=== PATIENT | female | born 1970 | race African-American/Black ===

== ENCOUNTER 2018-11-21 15:24 | Emergency (ER) | payer MEDICAID, OTHER ==
[~2018-11-21] VITALS: Ht 165.1 cm; Wt 80.0 kg
[~2018-11-21 15:24] MED LIST: CYCL5TAB PO; GABA300C10 PO; SERT25TA PO; ZOLP-413 PO
[2018-11-21 16:11] LABS: BASOPHILS # (AUTO) 0.06 x10^3/uL (0-0.1); BASOPHILS % (AUTO) 1 % (0-1); EOSINOPHILS # (AUTO) 0.28 x10^3/uL (0-0.4); EOSINOPHILS % (AUTO) 3 % (1-7); LYMPHOCYTES # (AUTO) 2.83 x10^3/uL (1-3.4); LYMPHOCYTES % (AUTO) 32 % (22-44); MD NO; MEAN CORPUSCULAR HEMOGLOBIN 25.1 pg (27.0-34.8); MEAN CORPUSCULAR HGB CONC 31.2 g/dL (32.4-35.8); MEAN CORPUSCULAR VOLUME 80.5 fL (80-100); MEAN PLATELET VOLUME 7.6 fL (7.4-10.4); MONOCYTES # (AUTO) 0.68 x10^3/uL (0.2-0.8); MONOCYTES % (AUTO) 8 % (2-9); NEUTROPHILS # (AUTO) 5.09 x10^3/uL (1.8-6.8); NEUTROPHILS % (AUTO) 57 % (42-75); PLATELET COUNT 499 x10^3/uL (130-400); RED BLOOD COUNT 4.28 x10^6/uL (3.82-5.3); RED CELL DISTRIBUTION WIDTH 15.4 % (9.6-15.2)
[2018-11-21 16:22] LABS: ALANINE AMINOTRANSFERASE 30 U/L (12-78); ALBUMIN 3.2 g/dL (3.4-5.0); ANION GAP 7 mmol/L (5-15); CALCIUM 8.9 mg/dL (8.5-10.1); CHLORIDE 106 mmol/L (98-107); CREATININE 0.62 mg/dL (0.55-1.02)
[2018-11-21 16:27] LABS: ALKALINE PHOSPHATASE 79 U/L (45-117); BILIRUBIN,TOTAL 0.5 mg/dL (0.2-1.0); TOTAL PROTEIN 8.2 g/dL (6.4-8.2)
--- NOTE | 2018-11-21 16:28 | NUR ---
FROM LOBBY TO ROOM AT THIS TIME
--- NOTE | 2018-11-21 16:39 | NUR ---
TASK RN - PT PRESENTS TO ED C/O RICHEY, N/V, AND ABD PAIN X APPROX 3 DAYS. RESTING ON GURNEY. CALL LIGHT IN REACH. FAMILY AT BEDSIDE. VSS. AMBULATORY TO BATHROOM WITH STEADY GAIT FOR URINE SAMPLE.
[2018-11-21 17:26] LABS: CULTURE INDICATED? YES; MICROSCOPIC INDICATED
[2018-11-21] MEDS ORDERED: MAALOX/HYOSCYAMINE/LIDOCAINE 45 ML BTL PO ONE (17:30)
[2018-11-21] MEDS ORDERED: KETOROLAC 30 MG/1 ML IM ONE (17:30)
[2018-11-21] MEDS ORDERED: KETOROLAC 30 MG/1 ML ONE (17:34)
[2018-11-21] MEDS ORDERED: MAALOX/HYOSCYAMINE/LIDOCAINE 45 ML BTL ONE (17:34)
--- NOTE | 2018-11-21 17:39 | NUR ---
PT. WAS MEDICATED ORDERED. PT. IS RESTING AT THIS TIME. VSS.
--- NOTE | 2018-11-21 18:11 | NUR ---
PT. WAS GIVEN DISCHARGE INSTRUCTIONS AND SCRIPTS WITH UNDERSTANDING VERBALIZED ALONG WITH WILLINGNESS TO COMPLY. PT. WAS AMBULATORY TO THE DISCHARGE DESK. VSS.
[2018-11-21 18:12] VITALS: BP 128/80
== END 2018-11-21 18:30 | disposition home or self-care (01) ==
LOC: ED 17:55
DX: J01.00 Acute maxillary sinusitis, unspecified (principal); D50.0 Iron deficiency anemia secondary to blood loss (chronic); G89.29 Other chronic pain; R10.13 Epigastric pain; K21.9 Gastro-esophageal reflux disease without esophagitis; F32.9 Major depressive disorder, single episode, unspecified; F17.210 Nicotine dependence, cigarettes, uncomplicated; G44.209 Tension-type headache, unspecified, not intractable
CPT/HCPCS: 36415; 74022; 80053; 81001; 83690; 84703; 85025; 87086; 96372; 99284; J1885

== ENCOUNTER 2019-05-12 17:22 | Emergency (ER) | payer OTHER ==
[~2019-05-12] VITALS: Ht 165.1 cm; Wt 76.7 kg
[2019-05-12 17:23] VITALS: BP 136/82
--- NOTE | 2019-05-12 17:42 | NUR ---
PT WITH TIGHTNESS IN CHEST WITH SOME SOB. TENDER TO PALPATION ON EXAM. PT STATES PAIN BEGAN YESTERDAY 05/11, STATES THE PAIN WAS SHARP AND INTERMITTANT. PT RECALLS ALSO FEELING DISORIENTED. PT REPORTS INCREASED AMOUNT OF STRESS LATELY. PT DENIES TRAUMA. PT PLACED ON NIBP, CARD MONITOR, CONT PULSE OX. ER MD IN TO [facility] PT.
[2019-05-12] MEDS ORDERED: KETOROLAC 30 MG/1 ML ONE (17:55)
[2019-05-12] MEDS ORDERED: ASPIRIN 81 MG TABLET CHEW ONE (17:55)
[2019-05-12 17:59] LABS: MEAN CORPUSCULAR HEMOGLOBIN 23.1 pg (27.0-34.8); MEAN CORPUSCULAR HGB CONC 30.6 g/dL (32.4-35.8); MEAN CORPUSCULAR VOLUME 75.5 fL (80-100); MEAN PLATELET VOLUME 7.8 fL (7.4-10.4); PLATELET COUNT 402 x10^3/uL (130-400); RED BLOOD COUNT 4.13 x10^6/uL (3.82-5.3); RED CELL DISTRIBUTION WIDTH 18.4 % (9.6-15.2)
[2019-05-12] MEDS ORDERED: SODIUM CHLORIDE FLUSH 10ML SYR IVF ONE (18:00)
[2019-05-12] MEDS ORDERED: ASPIRIN 81 MG TABLET CHEW PO ONE (18:00)
[2019-05-12] MEDS ORDERED: KETOROLAC 60 MG/2 ML IV ONE (18:00)
--- NOTE | 2019-05-12 18:01 | NUR ---
PIV INTITIATED, LABS DRAWN, PT MEDICATED PER MAR
[2019-05-12 18:13] LABS: ALBUMIN 3.2 g/dL (3.4-5.0); ANION GAP 4 mmol/L (5-15); CALCIUM 8.2 mg/dL (8.5-10.1); CHLORIDE 110 mmol/L (98-107); CREATININE 0.72 mg/dL (0.55-1.02)
[2019-05-12 18:17] LABS: TROPONIN I < 0.015 ng/mL (0.000-0.045)
[2019-05-12 18:18] LABS: BASOPHILS # (AUTO) 0.02 x10^3/uL (0-0.1); BASOPHILS % (AUTO) 0 % (0-1); EOSINOPHILS # (AUTO) 0.19 x10^3/uL (0-0.4); EOSINOPHILS % (AUTO) 3 % (1-7); LYMPHOCYTES # (AUTO) 3.63 x10^3/uL (1-3.4); LYMPHOCYTES % (AUTO) 56 % (22-44); MD SCAN; MONOCYTES # (AUTO) 0.49 x10^3/uL (0.2-0.8); MONOCYTES % (AUTO) 8 % (2-9); NEUTROPHILS # (AUTO) 2.11 x10^3/uL (1.8-6.8); NEUTROPHILS % (AUTO) 33 % (42-75)
--- NOTE | 2019-05-12 19:04 | NUR ---
Patient/Caregiver given discharge instructions and they have confirmed that they understand the instructions. Patient ambulatory with steady gait.
== END 2019-05-12 19:02 | disposition home or self-care (01) ==
LOC: ED 18:06
DX: R07.2 Precordial pain (principal); D50.0 Iron deficiency anemia secondary to blood loss (chronic)
CPT/HCPCS: 36415; 71045; 80048; 82040; 84484; 85025; 93005; 96374; 99284; J1885

== ENCOUNTER 2019-12-27 04:11 | Emergency (ER) | payer SELFPAY ==
[~2019-12-27] VITALS: Ht 165.1 cm; Wt 76.6 kg
[2019-12-27 04:14] VITALS: BP 116/64
[2019-12-27] MEDS ORDERED: OXYcodone/APAP 5/325MG TABLET ONE (04:58)
[2019-12-27] MEDS ORDERED: OXYcodone/APAP 5/325MG TABLET PO ONE (05:00)
== END 2019-12-27 06:32 | disposition home or self-care (01) ==
LOC: ED 05:45
DX: G44.219 Episodic tension-type headache, not intractable (principal); K08.89 Other specified disorders of teeth and supporting structures; K21.9 Gastro-esophageal reflux disease without esophagitis
CPT/HCPCS: 99283